=== PATIENT | female | born 1960 | race Caucasian/White ===

== ENCOUNTER → 2019-07-20 | Outpatient (CLI) | payer BC ==
[~2019-07-20] MED LIST: ALEVE220 M1 PO; HYDROCODON-ACE1 EAC4 PO; MOBIC15 MG PO; VICOPROFEN 2001 EACH PO
== END ==
LOC: M.MRI 08:01
DX: M76.61 Achilles tendinitis, right leg (principal); M77.31 Calcaneal spur, right foot